=== PATIENT | female | born 1935 ===

== ENCOUNTER 2016-12-16 00:41 | Inpatient (IN) | payer OTHER ==
[~2016-12-16] VITALS: Ht 152.4 cm; Wt 44.1 kg
[2016-12-16] VITALS (10 sets, daily range): BP systolic 143–167; BP diastolic 80–102; PULSE 84–120; TEMP 36.4–36.5; O2SAT 92–97; Ht 152.4 cm; Wt 44.1 kg
[2016-12-16] MEDS ORDERED: GLIP1TAB85 PO (02:12)
[2016-12-16] MEDS ORDERED: CARV12.52 PO (02:12)
[2016-12-16] MEDS ORDERED: PANT40TA PO (02:12)
[2016-12-16] MEDS ORDERED: NTRGSL/4 SL (02:12)
[2016-12-16] MEDS ORDERED: ACET-1256 PO (02:12)
[2016-12-16] MEDS ORDERED: GABA-113 PO (02:12)
[2016-12-16] MEDS ORDERED: ALBINS (02:12)
[2016-12-16] MEDS ORDERED: CITA20TA4 PO (02:12)
[2016-12-16] MEDS ORDERED: CMD/1 PO (02:12)
[2016-12-16] MEDS ORDERED: POTA20TA16 PO (02:12)
[2016-12-16] MEDS ORDERED: METF-384 PO (02:12)
[2016-12-16] MEDS ORDERED: ASPI81TA28 PO (02:12)
[2016-12-16] MEDS ORDERED: ONDA4TAB46 PO (02:12)
[2016-12-16] MEDS ORDERED: SPR25 PO (02:12)
[2016-12-16] MEDS ORDERED: FURO-85 PO (02:12)
[2016-12-16] MEDS ORDERED: FERR325T18 PO (02:12)
[2016-12-16] MEDS ORDERED: LEVO75TA5 PO (02:12)
[2016-12-16] MEDS ORDERED: OXYC10SO PO (02:12)
[2016-12-16] MEDS ORDERED: CALC-416 PO (02:12)
[2016-12-16] MEDS ORDERED: MAGN400T6 PO (02:12)
[2016-12-16] MEDS ORDERED: CMD1 (02:12)
[2016-12-16] MEDS ORDERED: ONDA4TAB10 SL (02:12)
[2016-12-16] MEDS ORDERED: DEXTROSE 50% 50 ML SYR IV PRN (03:15)
[2016-12-16] MEDS ORDERED: GLUCOSE 40% GEL 15 GM TUBE PO PRN (03:15)
[2016-12-16] MEDS ORDERED: GLUCOSE 10 TABS/TUBE PO PRN (03:15)
[2016-12-16] MEDS ORDERED: GLUCAGON FOR INJ 1 MG VIAL SQ PRN (03:15)
[2016-12-16 03:27] LABS: BASO % 0.2 %; BASO ABS # 0.01 K/uL (0-0.2); EOS % 0.6 %; HEMATOCRIT 38.8 % (37-47); IG% 0.3 %; LYMPH % 19.1 %; LYMPH ABS # 1.24 K/uL (1.2-3.4); MEAN CELL VOLUME 95.3 fL (80-100); MEAN CORPUSCULAR HEMOGLOBIN 30.7 pg (25-34); MEAN PLATELET VOLUME 11.2 fL (7.4-10.4); MONO % 11.6 %; NEUT % 68.2 %; PLATELET COUNT 130 K/uL (130-400); RED BLOOD COUNT 4.07 M/uL (4.2-5.4); WHITE BLOOD COUNT 6.49 K/uL (4.8-10.8)
--- NOTE | 2016-12-16 03:27 | History and Physical ---
History & Physical Date & Time of Service: Dec 16, 2016 at 02:56 Chief Complaint: Rule Out Stroke Primary Care Physician: No Doctor, Assigned History of Present Illness Source: patient, clinic records, hospital records 81 yo F with a h/o vascular dementia and ventriculomegaly presented to [facility] with one day of confusion. She was brought in by family members who reported to the ER staff she was saying things that were off the wall and she was behaving strange such as tying and untying her shoes. The ER physician was concerned for stroke when other workup was negative so the patient was sent to [facility] for further stroke workup at her request because she has seen Neurologists here. 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 The patient has no idea why she is here or where she is, and is alert but oriented to self only. Cannot obtain accurate history as a result and family is not available to speak with. ROS is negative except she keeps bringing up symptoms from 2-3 years ago. Past Medical/Surgical History Medical Problems: (1) Acute on chronic systolic (congestive) heart failure Status: Chronic (2) Adrenal hyperplasia Status: Chronic (3) Anxiety Status: Chronic (4) Atrial fibrillation Status: Chronic (5) CAD (coronary artery disease) Permanent Comment: s/pCABG x 3, post-op lateral [place] Status: Chronic (6) CKD (chronic kidney disease), stage III Status: Chronic (7) COPD (chronic obstructive pulmonary disease) Status: Chronic (8) Dementia Status: Chronic (9) DMII (diabetes mellitus, type 2) Status: Chronic (10) GERD (gastroesophageal reflux disease) Status: Chronic (11) Hypothyroidism Status: Chronic Family History Patient reports no known family medical history. Social History Unable to obtain 2/2 dementia Immunizations History of Influenza Vaccine: Yes Influenza Vaccine Date: Mar 10, 2015 History of Tetanus Vaccine?: Unknown History of Pneumococcal: Yes Pneumococcal Date: Jan 04, 2016 History of Hepatitis B Vaccine: No Multi-Drug Resistant Organisms History of MDRO: No Allergies Coded Allergies: Calcium Channel Blockers (Verified Allergy, Unknown, unknown, 12/16/16) Ropinirole (Verified Allergy, Unknown, unknown, 12/16/16) Uncoded Allergies: adhesive tape (Allergy, Unknown, unknown, 12/16/16) Home Medications Scheduled Acetaminophen (Tylenol), 1 TAB PO Q8 Aspirin (Aspirin Ec), 81 MG PO DAILY Calcium Carbonate-Vitamin D (Calcium 600+D3), 1 TAB PO DAILY Carvedilol (Coreg), 1 TAB PO BID Citalopram Hydrobromide (Citalopram Hydrobromide), 1 TAB PO DAILY Ferrous Gluconate (Ferrous Gluconate), 324 MG PO DAILY Furosemide (Lasix), 1 TAB PO BID Gabapentin (Neurontin), 300 MG PO HS Glipizide Xl (Glucotrol Xl), 10 MG PO DAILY Levothyroxine Sodium (Levothyroxine Sodium), 1 TAB PO DAILY Magnesium Oxide (Mag-Ox), 400 MG PO DAILY Metformin Hcl (Glucophage), 1,000 MG PO BID Nitroglycerin (Nitrostat), 1 TAB SL UD Ondasetron Odt (Zofran Odt), 4 MG SL Q8 Oxycodone Oral Soln (Roxicodone Oral Soln), 2.5 ML PO Q4H Pantoprazole (Protonix), 40 MG PO DAILY Potassium Ext Rel (Klor-Con), 20 MEQ PO BID Spironolactone (Spironolactone), 25 MG PO DAILY Scheduled PRN Ondansetron Hcl (Zofran), 4 MG PO Q8 PRN for Nausea Miscellaneous Medications Albuterol Sulf (Albuterol Sulfate) Warfarin Sod (Warfarin Sodium), 1 MG PO Review of Systems Unable to obtain 2/2 dementia. Physical Exam GEN: frail, elderly, in no acute distress, alert and oriented to self only. HEENT: NC/AT, PERRL, normal sclerae/conjunctivae, EOMI, pharynx non-acute, MMM, partial dentures in place. CARDIO: irreg rhythm, reg rate, S1/2 heard without m/g/r LUNGS: CTA bilaterally, no crackles, rales or wheezes, good diaphragmatic excursion-limited exam as patient having trouble following instructions to breathe. ABD: soft, non-tender, non-distended, no rebound or guarding, +BS, no CVA tenderness EXTREMITY: RP and DP palpable 2+ bilat, no LE swelling or edema, extremities are warm and well-perfused NEURO: CN 2-12 grossly intact, sensation intact throughout, (reflexes) difficulty eliciting BR and knee reflexes bilaterally, no clonus. MUSC: 5/5 strength throughout,moves all extremities equally, no gross focal deficits SKIN: warm and dry Diagnostics Laboratory Results 12/16/16 03:19 Red Blood Count 4.07, Mean Corpuscular Volume 95.3, Mean Corpuscular Hemoglobin 30.7, Mean Corpuscular Hemoglobin Concent 32.2, Mean Platelet Volume 11.2, Neutrophils (%) (Auto) 68.2, Lymphocytes (%) (Auto) 19.1, Monocytes (%) (Auto) 11.6, Eosinophils (%) (Auto) 0.6, Basophils (%) (Auto) 0.2, Neutrophils # (Auto ) 4.43, Lymphocytes # (Auto) 1.24, Monocytes # (Auto) 0.75, Eosinophils # (Auto ) 0.04, Basophils # (Auto) 0.01 12/16/16 03:19 Test 12/16/16 03:19 12/16/16 07:14 White Blood Count 6.49 K/uL (4.8-10.8) Red Blood Count 4.07 M/uL (4.2-5.4) Hemoglobin 12.5 g/dL (12.0-16.0) Hematocrit 38.8 % (37-47) Mean Corpuscular Volume 95.3 fL (80-100) Mean Corpuscular Hemoglobin 30.7 pg (25-34) Mean Corpuscular Hemoglobin Concent 32.2 g/dl (32-36) Platelet Count 130 K/uL (130-400) Mean Platelet Volume 11.2 fL (7.4-10.4) Neutrophils (%) (Auto) 68.2 % Lymphocytes (%) (Auto) 19.1 % Monocytes (%) (Auto) 11.6 % Eosinophils (%) (Auto) 0.6 % Basophils (%) (Auto) 0.2 % Neutrophils # (Auto) 4.43 K/uL (1.4-6.5) Lymphocytes # (Auto) 1.24 K/uL (1.2-3.4) Monocytes # (Auto) 0.75 K/uL (0.11-0.59) Eosinophils # (Auto) 0.04 K/uL (0-0.5) Basophils # (Auto) 0.01 K/uL (0-0.2) RDW Standard Deviation 48.2 fL (36.4-46.3) RDW Coefficient of Variation 13.7 % (11.5-14.5) Immature Granulocyte % (Auto) 0.3 % Immature Granulocyte # (Auto) 0.02 K/uL (0.00-0.02) Prothrombin Time 16.6 SECONDS (9.0-12.0) Prothromb Time International Ratio 1.5 (0.9-1.1) Activated Partial Thromboplast Time 32.8 SECONDS (21.0-31.0) Partial Thromboplastin Ratio 1.3 Anion Gap 9.0 mmol/L (3-11) Estimated GFR () 85.3 Estimated GFR (Non- 73.6 BUN/Creatinine Ratio 18.5 (10-20) Calcium Level 8.5 mg/dl (8.5-10.1) Total Creatine Kinase 46 U/L (26-192) Creatine Kinase MB 1.0 ng/ml (0.5-3.6) Creatine Kinase MB Ratio 2.2 (0-3.0) Troponin I < 0.015 ng/ml (0-0.045) Bedside Glucose 239 mg/dl (70-90) Date/Time Source Procedure Growth Status 12/16/16 04:53 Blood Blood Culture Pending Received Results Past 24 Hours Test 12/16/16 02:48 Range/Units EKG afib with RVR , rate 117 Impression Assessment and Plan 81 yo F with multiple medical problems including dementia presents with acute confusion 1. Confusion-pt appears demented. She has no focal findings on exam or symptoms to suggest stroke, and CT head did not reveal an infarct. She does have afib however, and she is currently subtherapeutic on her afib. 2. Chronic systolic heart failure-stable, euvolemic 3. Atrial fibrillation-on coumadin and Coreg. 4. CAD-medical managment as above. 5. HTN-controlled, cont spirolonalactone DVT proph-couamdin Full code-for now until further discussion with the familt [facility]po[facility] Level of Care Telemetry Resuscitation Status FULL RESUSCITATION VTE Prophylaxis Risk Level: Moderate Given or contraindicated: Warfarin (Coumadin)
[2016-12-16] MEDS ORDERED: PHARMACY GLYCEMIC MGMT CONSULT PRN (03:32)
[2016-12-16 03:37] LABS: INR 1.5 (0.9-1.1); PARTIAL THROMBOPLASTIN RATIO 1.3; PROTHROMBIN TIME (PATIENT) 16.6 SECONDS (9.0-12.0)
[2016-12-16 03:39] LABS: COMPLETE YES; MEAN CORPUSCULAR HGB CONC 32.2 g/dl (32-36)
[2016-12-16] MEDS: PATIENT'S HEIGHT AND/OR WEIGHT NEEDED SCH ×2 (03:45→05:45)
[2016-12-16 04:18] LABS: BLOOD UREA NITROGEN 14 mg/dl (7-18); BUN/CREATININE RATIO 18.5 (10-20); CALCIUM 8.5 mg/dl (8.5-10.1); CARBON DIOXIDE 25 mmol/L (21-32); CHLORIDE 106 mmol/L (98-107); CKMB/CK RATIO 2.2 (0-3.0); CREATININE 0.76 mg/dl (0.60-1.20); GLUCOSE 220 mg/dl (70-99); POTASSIUM 4.7 mmol/L (3.5-5.1); SODIUM 140 mmol/L (136-145)
[2016-12-16] MEDS ORDERED: LEVOTHYROXINE 75 MCG TAB PO SCH (06:00)
[2016-12-16] MEDS: INSULIN ASPART 100 UNITS/ML 3 ML PEN SC SCH ×2 (07:57→11:00)
[2016-12-16] MEDS ORDERED: CARVEDILOL 12.5 MG TAB PO SCH (09:00)
[2016-12-16] MEDS ORDERED: MAGNESIUM OXIDE 400 MG TAB PO SCH (09:00)
[2016-12-16] MEDS ORDERED: PANTOprazole SOD 40 MG TAB PO SCH (09:00)
[2016-12-16] MEDS ORDERED: INSULIN GLARGINE SOLOSTAR 100 UNITS/ML 3 ML PEN SC SCH ×2 (09:00→21:00)
[2016-12-16] MEDS ORDERED: SPIRONOLACTONE 25 MG TAB PO SCH (09:00)
[2016-12-16] MEDS ORDERED: ASPIRIN 81 MG ECTAB PO SCH (09:00)
[2016-12-16] MEDS ORDERED: CITALOPRAM 20 MG TAB PO SCH (09:00)
--- NOTE | 2016-12-16 09:36 | Pharmacy Progress Note ---
Glycemic Control Intl Consult Date of Service Dec 16, 2016. Scope Glycemic Pharmacist consulted by Dr Bueno on 12/16 for glycemic control and to write orders per [facility] ED inpatient glycemic control protocol Objective Weight (Kilograms): 44.100 Accuchecks BSG (last 24hrs): Test 12/16/16 03:19 12/16/16 03:53 12/16/16 07:14 Random Glucose 220 mg/dl (70-99) Bedside Glucose 247 mg/dl (70-90) 239 mg/dl (70-90) Laboratory Data (last 24hrs) Test 12/16/16 03:19 Anion Gap 9.0 mmol/L BUN/Creatinine Ratio 18.5 Blood Urea Nitrogen 14 mg/dl Creatinine 0.76 mg/dl Potassium Level 4.7 mmol/L Sodium Level 140 mmol/L White Blood Count 6.49 K/uL Red Blood Count 4.07 M/uL Hemoglobin 12.5 g/dL Hematocrit 38.8 % Mean Corpuscular Volume 95.3 fL Mean Corpuscular Hemoglobin 30.7 pg Mean Corpuscular Hemoglobin Concent 32.2 g/dl Platelet Count 130 K/uL Mean Platelet Volume 11.2 fL Neutrophils (%) (Auto) 68.2 % Lymphocytes (%) (Auto) 19.1 % Monocytes (%) (Auto) 11.6 % Eosinophils (%) (Auto) 0.6 % Basophils (%) (Auto) 0.2 % Neutrophils # (Auto) 4.43 K/uL Lymphocytes # (Auto) 1.24 K/uL Monocytes # (Auto) 0.75 K/uL Eosinophils # (Auto) 0.04 K/uL Basophils # (Auto) 0.01 K/uL Recent Pertinent Medications Outpatient Anti-diabetic Regimen: * Glipizide XL 10 mg daily * Metformin 1 gm BID * A1c = unknown Risk Factors for Insulin Resistance: * Stress Assessment & Plan ASSESSMENT: * 81 y/o female with type 2 diabetes, maintained on oral agents only as an outpatient. Unknown outpatient control as A1c is not available. * Oral agents are not recommended for inpatient use d/t drug interactions, changing PO intake, and difficulty titrating for acute hyper/hypoglycemia. ADA recommends re-initiating outpatient oral agents 1-2 days prior to discharge if/ when appropriate if they were held on admission. * Will hold oral agents for admission and utilize SQ basal bolus insulin regimen which is the recommended regimen for inpatient glycemic control. * Will initiate weight based insulin dosing for insulin ty patient and titrate based on BSG trends. * Will utilize stress level of ~1.5 for basal, stress level of 2 for CF/CR * ADA & AACE recommend a goal blood sugar range 140-180 mg/dl for the majority of critically ill & non-critically ill patients. However, more stringent targets may be selected in individual cases. PLAN FOR INPATIENT GLYCEMIC CONTROL: * Holding outpatient oral diabetes medications * Basal insulin with LANTUS 5 units SQ BID * Correctional Insulin with NOVOLOG per scale ACHS or Q6hrs while NPO * Goal Range: CHANGE to Low 140 mg/dL - High 180 mg/dL * Correction Factor: 50 mg/dL/unit * Nutritional / Prandial insulin per carb ratio of 1 unit per 18 grams CHO consumed * A1c w/ AM labs on 12/17 * Please note that the plan above was derived based on current level of insulin resistance and hospital stress. These recommendations are appropriate for inpatient admission only. Plan of care upon discharge will need to be reassessed to avoid potential outpatient hypo/hyperglycemia. Thank you.
[2016-12-16] MEDS ORDERED: METOPROLOL TARTRATE 1 MG/ML VIAL IV PRN (12:00)
--- NOTE | 2016-12-16 12:49 | Neurology Consultation ---
Neurology Consultation Date of Consultation: Dec 16, 2016. Attending Physician: Wilma Bueno DO Primary Care Physician: No Doctor, Assigned History of Present Illness Source: family 81 year old R handed female who I see for dementia. I am currently unable to access the pt outpt med rec. Yesterday pt seemed more confused, was picking her shoelaces had more difficulty walking. She had sat outside in high temperature, high humidity weather and blood sugars were in the low 400s which was uncharacteristic. Pt was given a prn med for agitation last week. She took one dose and had se so it was dced. The pt was xferred from for eval of a possible stroke. CT there, showed no acute abnl. The pt denies any sx. Family specifically noted to focal neurologic signs. Past Medical/Surgical History afib, pacer defib, demential Past Medical/Surgical History Medical Problems: (1) Acute on chronic systolic (congestive) heart failure Status: Chronic (2) Adrenal hyperplasia Status: Chronic (3) Anxiety Status: Chronic (4) Atrial fibrillation Status: Chronic (5) CAD (coronary artery disease) Permanent Comment: s/pCABG x 3, post-op lateral [place] Status: Chronic (6) CKD (chronic kidney disease), stage III Status: Chronic (7) COPD (chronic obstructive pulmonary disease) Status: Chronic (8) Dementia Status: Chronic (9) DMII (diabetes mellitus, type 2) Status: Chronic (10) GERD (gastroesophageal reflux disease) Status: Chronic (11) Hypothyroidism Social History Smoking Status: Never smoker Alcohol Use: none Housing Status: lives with family Occupation Status: retired Allergies Coded Allergies: Calcium Channel Blockers (Verified Allergy, Unknown, unknown, 12/16/16) Ropinirole (Verified Allergy, Unknown, unknown, 12/16/16) Uncoded Allergies: adhesive tape (Allergy, Unknown, unknown, 12/16/16) Current Inpatient Medications Current Inpatient Medications Medications (Trade) Dose Ordered Sig/Teto Route Start Time Stop Time Status Last Admin Dose Admin Insulin Glargine (Lantus Solostar Pen) 5 units Q12 FL 12/16/16 09:00 01/15/17 08:59 12/16/16 08:21 5 UNITS Insulin Aspart (novoLOG ASPART) SLIDING SCALE If C... ACHS SC 12/16/16 07:00 8/14/17 06:59 12/16/16 07:57 2 UNITS Glucose (Glucose 40% Gel) 15-30 GRAMS 15 GRAMS... UD PRN PO 12/16/16 03:15 01/15/17 03:14 Glucose (Glucose Chew Tab) 4-8 Tablets 4 Tabl... UD PRN PO 12/16/16 03:15 01/15/17 03:14 Dextrose (Dextrose 50% 50ML Syringe) 25-50ML OF 50% DW IV FOR... UD PRN IV 12/16/16 03:15 01/15/17 03:14 Glucagon (Glucagon Inj) 1 mg UD PRN SQ 12/16/16 03:15 01/15/17 03:14 Miscellaneous Information (Consult Glycemic Management Pharmacy) 1 ea DAILY PRN N/A 12/16/16 03:32 01/15/17 03:31 Aspirin (Ecotrin Tab) 81 mg DAILY PO 12/16/16 09:00 01/15/17 08:59 12/16/16 07:54 81 MG Carvedilol (Coreg Tab) 12.5 mg BID PO 12/16/16 09:00 01/15/17 08:59 12/16/16 07:54 12.5 MG Citalopram Hydrobromide (celeXA TAB) 20 mg DAILY PO 12/16/16 09:00 01/15/17 08:59 12/16/16 07:53 20 MG Gabapentin (Neurontin Cap) 300 mg HS PO 12/16/16 21:00 01/15/17 20:59 Levothyroxine Sodium (Synthroid Tab) 75 mcg DAILYBB PO 12/16/16 06:00 01/15/17 05:59 12/16/16 07:51 75 MCG Magnesium Oxide (Mag-Ox Tab) 400 mg DAILY PO 12/16/16 09:00 01/15/17 08:59 12/16/16 07:53 400 MG Pantoprazole Sodium (Protonix Tab) 40 mg DAILY PO 12/16/16 09:00 01/15/17 08:59 12/16/16 07:54 40 MG Spironolactone (Aldactone Tab) 25 mg DAILY PO 12/16/16 09:00 01/15/17 08:59 12/16/16 07:53 25 MG Warfarin Sodium (Coumadin Tab) 1 mg DAILY@1600 PO 12/16/16 16:00 01/15/17 15:59 Metoprolol Tartrate (Lopressor Iv) 5 mg Q6 PRN IV. 12/16/16 12:00 01/15/17 11:59 UNV Review of Systems unreliable due to baseline dementia Physical Exam Vital Signs (Past 24 Hrs): Date Time Temp Pulse Resp B/P (MAP) Pulse Ox O2 Delivery O2 Flow Rate FiO2 12/16/16 12:08 36.5 84 18 167/82 (110) 92 Room Air 12/16/16 11:46 Room Air 12/16/16 09:00 97 20 12/16/16 08:00 105 20 12/16/16 08:00 Room Air 12/16/16 07:44 36.4 120 19 164/102 (122) 95 12/16/16 07:27 105 20 148/84 (105) 12/16/16 07:10 36.5 20 145/84 Room Air 12/16/16 05:45 105 20 148/84 (105) 12/16/16 04:47 108 20 145/82 (103) 12/16/16 04:39 Room Air 12/16/16 03:50 36.5 101 18 143/80 (101) 97 Room Air Pt awake, alert pleasant, nml speech and language. Ox1, memory 0/3 at 3 minutes , poor calculations. Head NCAT, PERRLA. optic nerves unable to be visualized., ml EOM, vis pace, facial symmetry, sensation. Motor no tremor or rigidity, full strength, no drift , nml SALLIE. query decreased sensation L arm and L leg. FNF, HS nml. REflexes symmetric, toes down. Laboratory Results Past 24 Hours: 12/16/16 03:19 Red Blood Count 4.07, Mean Corpuscular Volume 95.3, Mean Corpuscular Hemoglobin 30.7, Mean Corpuscular Hemoglobin Concent 32.2, Mean Platelet Volume 11.2, Neutrophils (%) (Auto) 68.2, Lymphocytes (%) (Auto) 19.1, Monocytes (%) (Auto) 11.6, Eosinophils (%) (Auto) 0.6, Basophils (%) (Auto) 0.2, Neutrophils # (Auto ) 4.43, Lymphocytes # (Auto) 1.24, Monocytes # (Auto) 0.75, Eosinophils # (Auto ) 0.04, Basophils # (Auto) 0.01 12/16/16 03:19 Test 12/16/16 03:19 12/16/16 11:17 White Blood Count 6.49 K/uL (4.8-10.8) Red Blood Count 4.07 M/uL (4.2-5.4) Hemoglobin 12.5 g/dL (12.0-16.0) Hematocrit 38.8 % (37-47) Mean Corpuscular Volume 95.3 fL (80-100) Mean Corpuscular Hemoglobin 30.7 pg (25-34) Mean Corpuscular Hemoglobin Concent 32.2 g/dl (32-36) Platelet Count 130 K/uL (130-400) Mean Platelet Volume 11.2 fL (7.4-10.4) Neutrophils (%) (Auto) 68.2 % Lymphocytes (%) (Auto) 19.1 % Monocytes (%) (Auto) 11.6 % Eosinophils (%) (Auto) 0.6 % Basophils (%) (Auto) 0.2 % Neutrophils # (Auto) 4.43 K/uL (1.4-6.5) Lymphocytes # (Auto) 1.24 K/uL (1.2-3.4) Monocytes # (Auto) 0.75 K/uL (0.11-0.59) Eosinophils # (Auto) 0.04 K/uL (0-0.5) Basophils # (Auto) 0.01 K/uL (0-0.2) RDW Standard Deviation 48.2 fL (36.4-46.3) RDW Coefficient of Variation 13.7 % (11.5-14.5) Immature Granulocyte % (Auto) 0.3 % Immature Granulocyte # (Auto) 0.02 K/uL (0.00-0.02) Prothrombin Time 16.6 SECONDS (9.0-12.0) Prothromb Time International Ratio 1.5 (0.9-1.1) Activated Partial Thromboplast Time 32.8 SECONDS (21.0-31.0) Partial Thromboplastin Ratio 1.3 Anion Gap 9.0 mmol/L (3-11) Estimated GFR () 85.3 Estimated GFR (Non- 73.6 BUN/Creatinine Ratio 18.5 (10-20) Calcium Level 8.5 mg/dl (8.5-10.1) Total Creatine Kinase 46 U/L (26-192) Creatine Kinase MB 1.0 ng/ml (0.5-3.6) Creatine Kinase MB Ratio 2.2 (0-3.0) Troponin I < 0.015 ng/ml (0-0.045) Bedside Glucose 111 mg/dl (70-90) Imaging By report CT outside facility no acute process. Impression Baseline dementia with increased confusion likely related to heat exposure and elevated glucose. No evidence of stroke or TIA. If there are no medical issues otherwise pt may be discharged to see me in follow-up within the next month or two. AARTI Kelsey MD
[2016-12-16] MEDS ORDERED: COREG PO (13:57)
--- NOTE | 2016-12-16 13:58 | Discharge Instructions ---
Discharge Instructions Date of Service Dec 16, 2016. Admission Reason for Admission: Rule Out Stroke Discharge Discharge Diagnosis / Problem: RAPID AFIB ; CONFUSION , NO EVIDENCE OF TIA OR CVA Discharge Goals Goal(s): Improve disease control, Diagnostic testing Activity Recommendations Activity Limitations: resume your previous activity . Instructions / Follow-Up Instructions / Follow-Up NEW MEDICATION : COREG DOSE INCREASED TO 25 MG TWICE DAILY ( WAS 12.5 MG TWICE DAILY ) HOSPITAL FOLLOW UP : 12/20/2016 @ 2:10 PM Neno Gay MD [facility] CARDIOLOGY FOLLOW UP : 12/26/2016 8:00 AM [facility] [place] [facility] NEUROLOGY FOLLOW UP : 12/27/2016 4:20 PM Nolvia Kelsey MD Neurology [facility] CARDIOLOGY FOLLOW UP : 01/09/2017 2:30 PM Cheri Holguin PA-C Cardiology [facility] ORTHOPEDICS FOLLOW UP : 12/26/2016 11:45 AM Mark Love MD Orthopaedics, [facility] Diet Patient's current hospital diet: AHA Diet (Heart Healthy), Diabetes Type 2 Diet Discharge Diet Recommended Diet: AHA Diet (Heart Healthy), Diabetes Type 2 Diet Pending Studies Studies pending at discharge: no Medical Emergencies . Who to Call and When: Medical Emergencies: If at any time you feel your situation is an emergency, please call 911 immediately. . Non-Emergent Contact Non-Emergency issues call your: Primary Care Provider . . "Provider Documentation" section prepared by Sri Hernandez. . VTE Core Measure Inpt VTE Proph given/why not?: Warfarin (Coumadin)
[2016-12-16] MEDS ORDERED: CARVEDILOL 12.5 MG TAB PO ONE (14:00)
[2016-12-16] MEDS ORDERED: CARVEDILOL 25 MG TAB PO SCH ×2 (14:15→21:00)
--- NOTE | 2016-12-16 14:26 | Progress Note ---
Internal Med Progress Note Date of Service: Dec 16, 2016. Provider Documentation: SUBJECTIVE: feels fine , awake and alert offers no complain no confusion noted no complain of chest pain or SOB very eager to go home daughter present at bedside OBJECTIVE: Vital Signs-as noted below Exam: General-elderly female ,no sign of distress Eyes-sclera non icteric ENT-NAD Neck-no JVD Lungs-CTA Heart-irregular Abdomen-soft, non tender Extremities-no lower ext edema Neuro-AAO x3, no focal deficit Lab data as noted below. ASSESSMENT & PLAN: 1. Confusion- resolved, awake and alert possible metabolic encephalopathy due to dehydration , hyperglycemia no evidence of TIA or stroke She has no focal findings on exam or symptoms to suggest stroke, CT head did not reveal an infarct. appreciate input form Neurology no further neuro images needed stable to be discharged home already has scheduled follow up with Neurology in office in few weeks AFIB RVR : hx of chronic afib on Coumadin HR In 100's will increase the dose of Coreg 25 mg BID out pt follow up with Cardiology 2. Chronic systolic heart failure- stable, euvolemic cont Aldactone DVT PROPHYLAXIS on Coumadin DISPOSITION pt ambulated in [address] way with walker minimum assistance per daughter -pt is at her baseline stable to be discharged home Hospital follow up arranged with Family physician next week Vital Signs: Date Time Temp Pulse Resp B/P (MAP) Pulse Ox O2 Delivery O2 Flow Rate FiO2 12/16/16 13:51 36.5 84 18 92 Room Air 12/16/16 12:08 36.5 84 18 167/82 (110) 92 Room Air 12/16/16 11:46 Room Air 12/16/16 09:00 97 20 12/16/16 08:00 105 20 12/16/16 08:00 Room Air 12/16/16 07:44 36.4 120 19 164/102 (122) 95 12/16/16 07:27 105 20 148/84 (105) 12/16/16 07:10 36.5 20 145/84 Room Air 12/16/16 05:45 105 20 148/84 (105) 12/16/16 04:47 108 20 145/82 (103) 12/16/16 04:39 Room Air 12/16/16 03:50 36.5 101 18 143/80 (101) 97 Room Air Lab Results: Results Past 24 Hours Test 12/16/16 03:19 12/16/16 03:53 12/16/16 07:14 12/16/16 11:17 Range/Units White Blood Count 6.49 4.8-10.8 K/uL Red Blood Count 4.07 4.2-5.4 M/uL Hemoglobin 12.5 12.0-16.0 g/dL Hematocrit 38.8 37-47 % Mean Corpuscular Volume 95.3 80-100 fL Mean Corpuscular Hemoglobin 30.7 25-34 pg Mean Corpuscular Hemoglobin Concent 32.2 32-36 g/dl Platelet Count 130 130-400 K/uL Mean Platelet Volume 11.2 7.4-10.4 fL Neutrophils (%) (Auto) 68.2 % Lymphocytes (%) (Auto) 19.1 % Monocytes (%) (Auto) 11.6 % Eosinophils (%) (Auto) 0.6 % Basophils (%) (Auto) 0.2 % Neutrophils # (Auto) 4.43 1.4-6.5 K/uL Lymphocytes # (Auto) 1.24 1.2-3.4 K/uL Monocytes # (Auto) 0.75 0.11-0.59 K/uL Eosinophils # (Auto) 0.04 0-0.5 K/uL Basophils # (Auto) 0.01 0-0.2 K/uL RDW Standard Deviation 48.2 36.4-46.3 fL RDW Coefficient of Variation 13.7 11.5-14.5 % Immature Granulocyte % (Auto) 0.3 % Immature Granulocyte # (Auto) 0.02 0.00-0.02 K/uL Prothrombin Time 16.6 9.0-12.0 SECONDS Prothromb Time International Ratio 1.5 0.9-1.1 Activated Partial Thromboplast Time 32.8 21.0-31.0 SECONDS Partial Thromboplastin Ratio 1.3 Sodium Level 140 136-145 mmol/L Potassium Level 4.7 3.5-5.1 mmol/L Chloride Level 106 98-107 mmol/L Carbon Dioxide Level 25 21-32 mmol/L Anion Gap 9.0 3-11 mmol/L Blood Urea Nitrogen 14 7-18 mg/dl Creatinine 0.76 0.60-1.20 mg/dl Estimated GFR () 85.3 Estimated GFR (Non- 73.6 BUN/Creatinine Ratio 18.5 10-20 Random Glucose 220 70-99 mg/dl Calcium Level 8.5 8.5-10.1 mg/dl Total Creatine Kinase 46 26-192 U/L Creatine Kinase MB 1.0 0.5-3.6 ng/ml Creatine Kinase MB Ratio 2.2 0-3.0 Troponin I < 0.015 0-0.045 ng/ml Bedside Glucose 247 239 111 70-90 mg/dl Microbiology Results 12/16/16 Blood Culture, Received Pending 12/16/16 Blood Culture, Received Pending
--- NOTE | 2016-12-16 14:46 | Discharge Summary ---
Discharge Summary Date of Service Dec 16, 2016. Discharge Summary Admission Date: Dec 16, 2016 at 02:09 Discharge Date: Dec 16, 2016 Discharge Disposition: Home Principal Diagnosis: RAPID AFIB ; CONFUSION , NO EVIDENCE OF TIA OR CVA Consultations: [facility] Medication Reconciliation New Medications: [Coreg] () 25 MG PO BID for 30 Days, #60 TABS 3 Refills Continued Medications: Acetaminophen (Tylenol) 500 Mg Tab 1 TAB PO Q8 for 3 Days, #10 TAB Albuterol Sulf (Albuterol Sulfate) 2.5 Mg/3 Ml Nebu Aspirin (Aspirin Ec) 81 Mg Tab 81 MG PO DAILY Calcium Carbonate-Vitamin D (Calcium 600+D3) 1 Tab Tab 1 TAB PO DAILY Citalopram Hydrobromide (Citalopram Hydrobromide) 20 Mg Tab 1 TAB PO DAILY for 30 Days, #30 TAB 5 Refills Ferrous Gluconate (Ferrous Gluconate) 324 Mg Tab 324 MG PO DAILY, TAB Furosemide (Lasix) 20 Mg Tab 1 TAB PO BID for 90 Days, #180 TAB 1 Refill Gabapentin (Neurontin) 300 Mg Cap 300 MG PO HS, CAP Glipizide Xl (Glucotrol Xl) 10 Mg Tab 10 MG PO DAILY, TAB Levothyroxine Sodium (Levothyroxine Sodium) 75 Mcg Tab 1 TAB PO DAILY for 30 Days, #30 TAB 5 Refills Magnesium Oxide (Mag-Ox) 400 Mg Tab 400 MG PO DAILY, TAB Metformin Hcl (Glucophage) 1,000 Mg Tab 1000 MG PO BID, TAB Nitroglycerin (Nitrostat) 0.4 Mg Tab 1 TAB SL UD, #100 TAB 3 Refills Ondansetron Hcl (Zofran) 4 Mg Tab 4 MG PO Q8 PRN for Nausea, TAB Ondasetron Odt (Zofran Odt) 4 Mg Tab 4 MG SL Q8 for Nausea, #6 TAB Oxycodone Oral Soln (Roxicodone Oral Soln) 5 Mg/5 Ml Soln 2.5 ML PO Q4H Pantoprazole (Protonix) 40 Mg Tab 40 MG PO DAILY, #30 TAB Potassium Ext Rel (Klor-Con) 20 Meq Tabcr 20 MEQ PO BID, TAB Spironolactone (Spironolactone) 25 Mg Tab 25 MG PO DAILY Warfarin Sod (Warfarin Sodium) 1 Mg Tab 1 MG PO Discontinued Medications: Carvedilol (Coreg) 12.5 Mg Tab 1 TAB PO BID for 90 Days, #180 TAB 1 Refill Admission Information HPI (per Admitting provider): 81 yo F with a h/o vascular dementia and ventriculomegaly presented to [place] [facility] with one day of confusion. She was brought in by family members who reported to the ER staff she was saying things that were off the wall and she was behaving strange such as tying and untying her shoes. The ER physician was concerned for stroke when other workup was negative so the patient was sent to [facility] for further stroke workup at her request because she has seen Neurologists here. 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 The patient has no idea why she is here or where she is, and is alert but oriented to self only. Cannot obtain accurate history as a result and family is not available to speak with. ROS is negative except she keeps bringing up symptoms from 2-3 years ago. Physical Exam (per Admitting): GEN: frail, elderly, in no acute distress, alert and oriented to self only. HEENT: NC/AT, PERRL, normal sclerae/conjunctivae, EOMI, pharynx non-acute, MMM, partial dentures in place. CARDIO: irreg rhythm, reg rate, S1/2 heard without m/g/r LUNGS: CTA bilaterally, no crackles, rales or wheezes, good diaphragmatic excursion-limited exam as patient having trouble following instructions to breathe. ABD: soft, non-tender, non-distended, no rebound or guarding, +BS, no CVA tenderness EXTREMITY: RP and DP palpable 2+ bilat, no LE swelling or edema, extremities are warm and well-perfused NEURO: CN 2-12 grossly intact, sensation intact throughout, (reflexes) difficulty eliciting BR and knee reflexes bilaterally, no clonus. MUSC: 5/5 strength throughout,moves all extremities equally, no gross focal deficits SKIN: warm and dry Hospital Course 1. Confusion- resolved, awake and alert possible metabolic encephalopathy due to dehydration , hyperglycemia no evidence of TIA or stroke She has no focal findings on exam or symptoms to suggest stroke, CT head did not reveal an infarct. appreciate input form Neurology no further neuro images needed stable to be discharged home already has scheduled follow up with Neurology in office in few weeks AFIB RVR : hx of chronic afib on Coumadin HR In 100's will increase the dose of Coreg 25 mg BID out pt follow up with Cardiology 2. Chronic systolic heart failure- stable, euvolemic cont Aldactone DVT PROPHYLAXIS on Coumadin DISPOSITION pt ambulated in [address] way with walker minimum assistance per daughter -pt is at her baseline stable to be discharged home Hospital follow up arranged with Family physician next week Total time spent on discharge = 35 SD NS This includes examination of the patient, discharge planning, medication reconciliation, and communication with other providers. Discharge Instructions DI: Medical v4 Discharge Instructions Date of Service Dec 16, 2016. Admission Reason for Admission: Rule Out Stroke Discharge Discharge Diagnosis / Problem: RAPID AFIB ; CONFUSION , NO EVIDENCE OF TIA OR CVA Discharge Goals Goal(s): Improve disease control, Diagnostic testing Activity Recommendations Activity Limitations: resume your previous activity . Instructions / Follow-Up Instructions / Follow-Up NEW MEDICATION : COREG DOSE INCREASED TO 25 MG TWICE DAILY ( WAS 12.5 MG TWICE DAILY ) HOSPITAL FOLLOW UP : 12/20/2016 @ 2:10 PM Neno Gay MD [facility] CARDIOLOGY FOLLOW UP : 12/26/2016 8:00 AM [facility] [place] Cardiology [facility] NEUROLOGY FOLLOW UP : 12/27/2016 4:20 PM Nolvia Kelsey MD Neurology [facility] CARDIOLOGY FOLLOW UP : 01/09/2017 2:30 PM Cheri Holguin PA-C Cardiology [facility] ORTHOPEDICS FOLLOW UP : 12/26/2016 11:45 AM [facility] Patient[facility] current hospital diet: AHA Diet (Heart Healthy), Diabetes Type 2 Diet Discharge Diet Recommended Diet: AHA Diet (Heart Healthy), Diabetes Type 2 Diet Pending Studies Studies pending at discharge: no Medical Emergencies . Who to Call and When: Medical Emergencies: If at any time you feel your situation is an emergency, please call 911 immediately. . Non-Emergent Contact Non-Emergency issues call your: Primary Care Provider . . "Provider Documentation" section prepared by Sri Hernandez. . VTE Core Measure Inpt VTE Proph given/why not?: Warfarin (Coumadin)
[2016-12-16] MEDS ORDERED: WARFARIN SOD 1 MG TAB PO SCH (16:00)
[2016-12-16] MEDS ORDERED: GABAPENTIN 300 MG CAP PO SCH (21:00)
--- NOTE | 2016-12-17 13:02 | Progress Note ---
Progress Note Date of Service Dec 17, 2016. Progress Note Pt was admitted to Tele under observation status on 12/16/16 @ 0248 Admission Dx Confusion
== END 2016-12-16 14:48 | disposition home health service (06) | DRG 308 ==
LOC: C.2T 02:09
PROVIDERS: ADMIT Hospitalist; ATTEND Hospitalist
DX: I48.2 Chronic atrial fibrillation (principal); G93.41 Metabolic encephalopathy; I50.22 Chronic systolic (congestive) heart failure; E86.0 Dehydration; E11.65 Type 2 diabetes mellitus with hyperglycemia; F01.50 Vascular dementia, unspecified severity, without behavioral disturbance, psychotic disturbance, mood disturbance, and anxiety; I25.10 Atherosclerotic heart disease of native coronary artery without angina pectoris; N18.3 Chronic kidney disease, stage 3 (moderate); J44.9 Chronic obstructive pulmonary disease, unspecified; K21.9 Gastro-esophageal reflux disease without esophagitis; E03.9 Hypothyroidism, unspecified; F41.9 Anxiety disorder, unspecified; Z51.81 Encounter for therapeutic drug level monitoring; Z79.899 Other long term (current) drug therapy; Z79.84 Long term (current) use of oral hypoglycemic drugs; Z79.82 Long term (current) use of aspirin; Z79.891 Long term (current) use of opiate analgesic; Z95.1 Presence of aortocoronary bypass graft